=== PATIENT | male | born 1945 | race Two or more races ===

== ENCOUNTER 2017-03-25 06:34 | Day surgery (SDC) | payer MEDICARE, MEDICAID ==
[~2017-03-25] VITALS: Ht 157.5 cm; Wt 72.7 kg
--- NOTE | ~2017-03-25 | OP ---
PATIENT NAME: DIANA KATZ MEDICAL RECORD: [id number] :45 LOCATION:[facility] ADMISSION DATE: SURGEON: DONNIE LOERA DO DATE OF SERVICE: 03/25/2017. PROCEDURE: Esophagogastroduodenoscopy with biopsies. INDICATION: Heart burn and decrease in appetite. SCOPE: Olympus video gastroscope. MEDICATIONS: Propofol 70 milligrams IV per anesthesia. ESTIMATED BLOOD LOSS: Less than 10 milliliters. COMPLICATIONS: None. FINDINGS: Informed consent was given. The patient was made comfortable with the above medication. After reaching an adequate level of sedation by slow IV push, the patient was placed on his left side. The endoscope was then advanced under direct visualization through the mouth to the second portion of the duodenum. The upper, middle, and distal thirds of the esophagus appeared normal. At the gastroesophageal junction there was evidence of mild LA class B reflux induced esophagitis and possible Chisholm's esophagus. Random biopsies were taken to rule out this diagnosis. The endoscope was advanced beyond the gastroesophageal junction into the stomach and retroflexed to view the cardia which appeared normal. The fundus and body of the stomach appeared normal as well. In the antrum and prepyloric region there was some erythema and granularity consistent with gastritis. Random biopsies were taken to submit for histology and to rule out Helicobacter-pylori. The endoscope was advanced beyond the pylorus and in the duodenum where the bulb and second portion of the duodenum appeared normal. It was then withdrawn from the patient entirely. The patient tolerated the procedure well. There were no complications. IMPRESSIONS: 1. Reflux esophagitis grade B. 2. Possible Chisholm's esophagus, biopsies taken. 3. Antral and prepyloric gastritis, biopsies taken. PLAN/RECOMMENDATIONS: 1. Discharge home when recovery parameters are met. 2. Continue current medications. 3. Add Protonix 40 milligrams daily times six weeks. 4. Recommend smaller more frequent meals consistent with a gastroparesis diet. 5. Follow up in clinic if symptoms are not improved with additional medications. DONNIE LOERA DO CC: [id number] DICTATION DATE: 03/25/17 1200 MICROBIOLOGY TECHNOLOGIST: DM 03/25/17 [id number] [facility] 03/25/17 [place] [id number]
[2017-03-25 07:17] LABS: HEMATOCRIT 47.7 % (42.0-54.0); HEMOGLOBIN 16.6 g/dL (13.5-17.5); MCH 33.9 pg (26.0-34.0); MCHC 34.8 g/dL (31.0-37.0); MCV 97.5 fL (80.0-100.0); MEAN PLATELET VOLUME 10.7 fL (7.4-10.4); RBC 4.89 10x6/uL (4.20-6.10); RDW 13.1 % (11.5-14.5); WBC 4.7 10x3/uL (4.8-10.8)
[2017-03-25] MEDS ORDERED: SINEMET 25-1001 EACH PO (07:39)
[2017-03-25] MEDS ORDERED: PRINIVIL20 MG PO (07:40)
[2017-03-25] MEDS ORDERED: KLONOPIN1 MG PO (07:41)
[2017-03-25 07:42] VITALS: BP 93/64; Ht 157.5 cm; Wt 72.7 kg
--- NOTE | 2017-03-25 07:52 | NUR ---
DR. KIRBY PUT IN CONSULT FOR DR. GUZMAN TO SEE PT WILL NEED CLEARANCE BEFORE PROCEDURE. DR. KIRBY TALKED TO DR. GUZMAN.
--- NOTE | 2017-03-25 10:28 | NUR ---
0900- PT TO ROOM, SITTING UP WITH HOB ELEVATED. FAMILY AT BEDSIDE, SON SPEAKS TOGOLESE AND IS HELPING FAMIY UNDERSTAND. VSS. FULL LIQUIDS OFFERED. DR. LOERA AT BEDSIDE SPEAKING WITH FAMILY ABOUT PROCEDUARAL FINDINGS 0930- FULL LIQUIDS TOLERATED. 0935- IV D/C'D, PT TOELRATED. CATHETER INTACT. DISCHARGE INSTRUCTIONS COMPLETED, FAMILY VERBALIZED UNDERSTANDING. PAPERWORK SIGNED. 0945- PT DISCHARGED VIA WHEELCHAIR WITH FAMILY.
== END 2017-03-25 09:45 | disposition home or self-care (01) ==
LOC: D.OPS 06:34
PROVIDERS: Anesthesiology
DX: R12 Heartburn (principal); K21.0 Gastro-esophageal reflux disease with esophagitis; I10 Essential (primary) hypertension; K29.70 Gastritis, unspecified, without bleeding; Z01.812 Encounter for preprocedural laboratory examination